=== PATIENT | male | born 1945 | race Caucasian/White ===

== ENCOUNTER 2023-08-26 09:40 | Outpatient (AMB) | payer MEDICARE, BC, SELFPAY ==
--- NOTE | 2023-08-26 10:02 | MHC.OFFWIV ---
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 thigh pain Intake Note: pt is here for c/o right thigh pain and cut on lip due to fall Patient Tobacco Use Status: Never used Tobacco Allergies iodine Allergy (Mild, Verified 08/26/23 10:07) Unknown Sulfa (Sulfonamide Antibiotics) Allergy (Mild, Verified 08/26/23 10:07) Hives Medication List - Last Reconciled 08/26/23 by Tabitha Mead NP allopurinol 200 mg PO DAILY esomeprazole magnesium 40 mg PO DAILY finasteride 5 mg PO DAILY hydrochlorothiazide 12.5 mg PO DAILY ipratropium bromide intranasal lisinopril 40 mg PO DAILY nebivolol 10 mg PO DAILY simvastatin 20 mg PO BEDTIME tramadol 50 mg PO Q6H PRN Do you need a note to return to daycare/school/sports/work: No HPI HPI Comments History of Present Illness Details 77-year-old male [place] today [place]. He presents with multiple abrasions and a laceration in the buccal mucosa. He got his foot stuck between the golf cart and the curb and fell directly striking is lip on a rock. He also has abrasions on both forearms. Denies any pain around his orbit, teeth or head. Denies loss of consciousness. PFSH Social History Patient Tobacco Use Status: Never used Tobacco Review of Systems Const All systems reviewed & are unremarkable except as noted in HPI and below Eyes Reports no additional complaints ENT Reports no additional complaints Skin/Breast Reports bleeding lesions and Reports wounds (Multiple abrasions bilateral forearms and buccal mucosa) Neuro Reports no additional complaints Physical Exam Vital Signs: Last Vital Signs Temp 97.9 F 08/26/23 10:07 Pulse 83 08/26/23 10:07 BP 118/70 08/26/23 10:07 Pulse Ox 98 08/26/23 10:07 BMI result Body Mass Index 25.2 Const General: healthy appearing HEENT Head: Yes normocephalic and Yes abrasion Ears: hearing grossly normal bilaterally and external ears normal General nose exam: Normal external nose present, Normal septum present and No nasal discharge present Face and sinus: Yes abrasion Mouth: lip abnormal (Swelling and mild abrasion) and Abnormal oral and palatal mucosa present (Small superficial laceration anterior) Teeth and gingiva: dentition normal Extrem Right upper extremity: elbow/forearm (Abrasions present full range of motion) Details: normal ROM and abrasion Left upper extremity: full ROM and elbow/forearm Details: abnormal to inspection, normal ROM and abrasion Right lower extremity: hip/thigh (Mild superficial abrasion in the right) Details: abrasion Left lower extremity: knee (Mild abrasion superior to the patella) Details: abrasion Assessment & Plan Assessment & Plan (1) Abrasion, multiple sites: Code(s): T07.XXXA - Unspecified multiple injuries, initial encounter Plan: The abrasions were cleansed and covered. Steri-Strips applied to 2 abrasions on the left hand. The patient will follow up with his PCP and may be referred to the wound clinic for the abrasion on his left forearm. Plan See plan Coding Level of Care Code Est Pt Level 3 (28702) Diagnoses Abrasion, multiple sites T07.XXXA
[2023-08-26 10:07] VITALS: BP 118/70; PULSE 83; TEMP 36.6; O2SAT 98; BMI 25.2
== END 2023-08-26 11:05 | disposition home or self-care (01) ==
PROVIDERS: Visit Provider Physician Assistant Medical
DX: T07.XXXA Unspecified multiple injuries, initial encounter (principal)
CPT/HCPCS: 99213

== ENCOUNTER 2025-02-11 13:04 | Outpatient (AMB) | payer MEDICARE, BC, SELFPAY ==
--- OUTSIDE RECORDS SUMMARY | 2024-10-29 04:00 | XMS_ITS ---
Author Organization [facility] Address [address] [place] [address] Care Team Providers Care Radial Router Operator Name Role Phone Mariam JACKSON, Heriberto Primary Care Provider Un available Nitin Varghese Unavailable [phone] Encounters Encounter Location Date Provider Diagnosis [address] [address] 10/29/2024 Nitin Varghese Plan Of Treatment Next Appt Details Provider Name:Nitin Varghese , 04/05/2025 02:00:00 PM, [address] [place] [address], [phone], Progress Notes * Hang GOMEZ DOB: (79 yo M)Acc No.[id number]:10/29/2024 Progress Note Patient: Carolyn GUALLPA Hang Liz Provider: Cali Varghese DPM :1945 A ge:79 Y S ex:Male Date:10/29/2024 Address:[address], [place] Pcp:Heriberto Becerra MD Subjective: * Chief Complaints: * * Medical History: Objective: * Vitals: Assessment: Plan: * Treatment: * Images: * The named appointment provid er may or may not be the originator of this progress note, and it is not deemed complete until electronically signed by the appointment provider. Sign off status: Pending * Provider: Cali Varghese DPM Date: 0 10/29/2024 Generated for Sarah [place] on: 04/14/2024 06:40 PM EST
--- OUTSIDE RECORDS SUMMARY | 2024-12-17 07:45 | XMS_ITS ---
Author Organization [facility] Address [address] [place] [address] Care Team Providers Care Telesales Consultant Name Role Phone Mariam JACKSON, Heriberto Primary Care Provider Un available Nitin Varghese Unavailable [phone] REASON FOR VISIT Seen Sooner Encounters Encounter Location Date Provider Diagnosis [address] [address] 12/17/2024 Nitin Varghese Plan Of Treatment Next Appt Details Provider Name:Nitin Varghese , 04/05/2025 02:00:00 PM, [address] [place] [address], [phone], Progress Notes * Hang GOMEZ DOB: (79 yo M)Acc No.[id number]:12/17/2024 Progress Note Patient: Carolyn GUALLPA Hang Liz Provider: Cali Varghese DPM :1945 A ge:79 Y S ex:Male Date:12/17/2024 Address:[address], [place] Pcp:Heriberto Becerra MD Subjective: * Chief Complaints: * 1 . Seen Sooner. * Medical History: Objective: * Vitals: Assessment: Plan: * Treatment: * Images: * The named appointment provid er may or may not be the originator of this progress note, and it is not deemed complete until electronically signed by the appointment provider. Sign off status: Pending * Provider: Cali Varghese DPM Date: 1 Generated for Sarah [place] on: 04/14/2024 06:40 PM EST
[2025-02-11 13:05] VITALS: BP 110/72; PULSE 91; TEMP 36.8; O2SAT 99; BMI 26.8
--- NOTE | 2025-02-11 13:05 | MHC.OFFWIV ---
Intake Vital Signs 02/11/25 13:05 Height 5 ft 11 in Weight 192 lb BMI 26.8 BP 110/72 Blood Pressure Location Lt brachial Position Sitting Pulse 91 Pulse Source Pulse Oximeter Temp 98.3 F Temp Source Oral Pulse Oximetry (%) 99 Oxygen Delivery Method Room Air Intake Visit Reasons: EP Possible UTI Intake Note: pt presents with cloudy urine, urine frequency, discomfort with voiding. Cystoscopy done 01/07- UTI treated cephalexin x7 days, fell 2 days later with increased pain for 2 weeks- s/s reported have been worsening over this period of time. Patient Tobacco Use Status: Never used Tobacco Allergies iodine Allergy (Mild, Verified 02/11/25 13:16) Unknown Sulfa (Sulfonamide Antibiotics) Allergy (Mild, Verified 02/11/25 13:16) Hives Do you need a note to return to daycare/school/sports/work: No HPI HPI Comments History of Present Illness Details History - The patient is a 79 year old male presenting with recurrent urinary tract infection symptoms. - He reports having a cystoscopy on January 07, and a couple of days later, he developed a urinary tract infection with associated fever and chills. - He was treated with Keflex for a week, and his symptoms initially improved. - Two days post-treatment, he fell and sustained an arm fracture, which delayed his surgery for two weeks. - During this period, his UTI symptoms returned. - Following his arm surgery, where he received antibiotics, his urinary symptoms once again seemed to improve. - Currently, his symptoms have recurred, characterized by cloudy urine, mild dysuria, and increased urinary frequency, which is worse than his baseline secondary to an enlarged prostate. - He denies any fever, low back pain, or gross hematuria. - The patient takes omeprazole daily. [facility] Social History Patient Tobacco Use Status: Never used Tobacco Review of Systems Narrative Review of Systems - Constitutional: Denies fever and chills. - Genitourinary: Reports cloudy urine, mild dysuria, and increased urinary frequency. Denies gross hematuria. - Musculoskeletal: Denies low back pain. All systems reviewed and are unremarkable except as noted in HPI Physical Exam Exam Exam: Physical Exam General: Cooperative, healthy appearing, comfortable, no acute distress and well developed Orientation: Patient oriented x3 Limitations: No limitations Head: Normal to inspection Ears: Hearing grossly normal bilaterally Face and sinus: Normal facial exam Neck: Normal visual inspection and Yes full ROM Respiratory: Normal respiratory effort and able to speak in complete sentences. Skin: No rashes or lesions noted Neuro: Patient oriented x3, gait normal Extremities: right arm in sling and cast. Vital Signs: Last Vital Signs Temp 98.3 F 02/11/25 13:05 Pulse 91 02/11/25 13:05 BP 110/72 02/11/25 13:05 Pulse Ox 99 02/11/25 13:05 Oxygen Delivery Method Room Air 02/11/25 13:05 BMI result Body Mass Index 26.8 Results AMB Urinalysis, Automated UA Leukoctes 125 Ale/uL Last Edit by Delfina Salter CMA on 02/11/25 13:27 2+ Delfina Salter 02/11/25 13:27 UA Nitrite Negative Last Edit by Delfina Salter CMA on 02/11/25 13:27 UA Urobilinogen 0.2 mg/dL Last Edit by Delfina Salter CMA on 02/11/25 13:27 UA Protein 100 mg/dL Last Edit by Delfina Salter CMA on 02/11/25 13:27 2+ Delfina Salter 02/11/25 13:27 UA pH 6.0 Last Edit by Delfina Salter CMA on 02/11/25 13:27 UA Blood 10 Jonas/uL Last Edit by Delfina Salter CMA on 02/11/25 13:27 UA Specific [place] 1.020 Last Edit by Delfina Salter CMA on 02/11/25 13:27 UA Ketone Negative Last Edit by Delfina Salter CMA on 02/11/25 13:27 UA Bilirubin 0 mg/dL Last Edit by Delfina Salter CMA on 02/11/25 13:27 UA Glucose 0 mg/dL Last Edit by Delfina Salter CMA on 02/11/25 13:27 cloudy urine Results Reviewed Results Reviewed: Laboratory Last Values Urine pH (Auto) 6.0 02/11/25 13: Specific [place] (Auto) 1.020 02/11/25 13:25 Urine Protein (Auto) 100 mg/dL H* 02/11/25 13:25 Glucose (UA)(Auto) 0 mg/dL 02/11/25 13:25 Urine Ketones (Auto) Negative 02/11/25 13:25 Urine Blood (Auto) 10 Jonas/uL H 02/11/25 13:25 Urine Nitrite (Auto) Negative 02/11/25 13:25 Urine Bilirubin (Auto) 0 mg/dL 02/11/25 13:25 Urine Urobilinogen (Auto) 0.2 mg/dL 02/11/25 13:25 Leukocyte Esterase (Auto) 125 Ale/uL H* 02/11/25 13:25 Assessment & Plan Assessment & Plan (1) UTI (urinary tract infection): Code(s): N39.0 - Urinary tract infection, site not specified Qualifiers: Urinary tract infection type: acute cystitis Hematuria presence: with hematuria Qualified Code(s): N30.01 - Acute cystitis with hematuria Plan: Plan - A urine culture will be sent to confirm the diagnosis and guide antibiotic therapy. - Cefuroxime will be prescribed, to be taken every 12 hours for 7 days, for the treatment of his urinary tract infection. - The patient was advised that omeprazole can reduce the absorption of cefuroxime and was counseled to try skipping it and using Tums as needed during the antibiotic course. - The patient is advised to follow up with his primary care provider after completing the antibiotic course to ensure the hematuria and proteinuria have resolved. Patient was informed and verbally consented to the use of an ambient scribe for clinic note documentation during this visit. Orders: Orders AMB Urinalysis Automated Today Z13.9 - Encounter for screening, unspecified Medications: New cefuroxime axetil 500 mg PO Q12H 14 tabs 0RF Coding Level of Care Code New Pt Level 3 (29725) Diagnoses Acute cystitis with hematuria N30.01 Urinary tract infection type: acute cystitis Hematuria presence: with hematuria
--- OUTSIDE RECORDS SUMMARY | 2025-02-11 18:40 | XMS_ITS | Encounter Summary ---
Author Organization [facility] [place] [address] Care Team Providers Care Gore Stitcher Name Role Phone Heriberto Becerra MD Primary Care Provider [phone] Encounter Details Date Type Department Care Team (Late st Contact Info) Description 12/31/2024 Lab Requisition [facility] - Main Lab [address] [facility] [place] [address] Paul Shahid MD [address] [facility] [address] [place] [address] Gross hematuria Social History Tobacco Use Types Packs/Day Years Used Date Smoking Tobacco: Never Smokeless Tobacco: Never Alcohol Use Standard Drinks/Week Comments Yes 0 (1 standard drink = 0.6 oz pur e alcohol) Interpersonal Safety Answer Date Record ed Physical Abuse Unrecognized value 06/28/2024 Verbal Abuse Unrecognized value 06/28/2024 Sex and Gender Information Value Date Recorded Sex Assigned at Male 05/04/2024 6:53 PM EST Legal Sex Male 5:22 PM EST Gender Identity Male 05/04/2024 6:53 PM EST Sexual Orientation Straight 05/04/2024 6: 53 PM EST documented as of this encounter Plan of Treatment Upcoming Encounters Date Type Department Care Team (Late st Contact Info) Description 03/01/2025 3:10 PM EST Office Visit Gastroenterology - [address] [place] [address] Jorge Luis Ojeda MD [address] [address] documented as of this encounter Procedures Procedure Name Priority Date/Time Associated Diagnosis Comments NON-GYNECOLOGIC CYTOLOGY Routine 12/17/2024 12:00 AM EDT Gross hematuria documented in this encounter Results * Non-gynecologic cytology (12/17/2024 12:00 AM EDT) Final Diagnosis Urine, Voided, [id number]: Negative for high grade urothelial carcinoma. 01/05/2025 4:35 PM [facility] at 1635 EST Specimen A Adequacy Satisfactory for evaluation 01/05/2025 4:35 PM [facility] Clinical Information Gross hematuria R31.0 Urine Cytology/reflex FISH 01/05/2025 4:35 PM [facility] Gross Description A. Urine, Voided, [id number]: Received one ThinPrep slide for cytology 01/05/2025 4:35 PM [facility] Disclaimer Unless otherwise specified, all tissue is 10% NB formalin fixed and paraffin embedded. Technical pathology services provided by [facility] at [address] [place] [address] [address], [place] [address] (CLIA #[id number]/Caden Pedraza MD, Real Estate Assessor) 01/05/2025 4:35 PM [facility] Urine Urine specimen from urethra / Unknown 12/17/2024 12/31/2024 2:05 PM EDT us Paul Shahid MD LAB CYTOLOGY ORDERABLES Final R esult [facility] [address] [place] [address], [place] [phone] documented in this encounter Visit Diagnoses Diagnosis Gross hematuria documented in this encounter Care Teams Gore Stitcher Relationship Specialty Start Date End Date Heriberto Becerra MD [address] [place] [phone] PCP - General 04/10/22 documented as of this encounter
--- OUTSIDE RECORDS SUMMARY | 2025-02-11 18:40 | XMS_ITS | Patient Health Record ---
Author Organization [facility] Gary Alexandra Address [address] [facility] [place] [address] Care Team Providers Care Rv Servicer Name Role Phone Mariam JACKSON, [facility] Primary Care Provider Un available Nitin Varghese Unavailable [phone] Allergies Allergen (clinical drug ingredient) Drug/Non Drug Allergy documented on EMR Reaction Allergy Type Onset Date Status sulfamethoxazole / trimethoprim Bactrim Hives Drug Allergy Active Iodine Dry heaves Drug Allergy Active Reason For Referral No Information Medications Medication SIG (Take, Route, Frequency, Duration) Notes Start Date End Date Status Vitamin B12 1000 MCG 1 tablet Orally Onc e a day Active traMADol HCl 50 MG 1 tablet as needed Orally 3 times a day PRN Active Finasteride 5 MG 1 tablet Orally Once a day Not-Taking Vitamin D-400 400 UNIT 2 tablets Orally Once a day Active Simvastatin 20 MG 1 tablet in the evening Orally Once a day Active Nebivolol HCl 10 MG 1 tablet Orally Once a day Active Lisinopril 20 MG 1 tablet Orally Once a day Active Allopurinol 100 MG 1 tablet Orally twice a day Active Metoprolol Succinate ER 100 MG 1 tablet Orally Once a day Not-Taking Atrovent Active amLODIPine Besylate 5 MG 1 tablet Orally Once a day Not-Taking hydroCHLOROthiazide 12.5 MG 1 tablet in the morning Orally Once a day Active Esomeprazole Sodium 40 MG Intravenous Active Aspirin 81 MG 1 tablet Orally Once a day Not-Taking Immunizations Vaccine Route Administration Date Status Comme nts Influenza Unknown 12/01/2021 Administered COVID-19 Moderna Vaccine Unknown 12/31/2020 Administered 1st 05/02/2020 2nd 05/30/2020 Social History Tobacco Use: Social History Observation Description Date Details (start date - stop date) Never Smoker NA - NA Tobacco use other than smoking: Question Answer Notes Are you an other tobacco user? No Tobacco Control (Standard) Question Answer Notes Tobacco use: Nonsmoker Additional Findings: Tobacco non-user Current no nsmoker AUDIT-C (Standard) Question Answer Notes Did you have a drink containing alcohol in the p ast year? No Points 0 Interpretation Negative Problems Problem Type SNOMED Code ICD Code Onset Dates Problem Status W/U Status Risk Notes Problem Tinea unguium (207811251) Tinea unguium (B35.1) Active confirmed Problem Plantar wart (14591576) Plantar wart (B07.0) Active confirmed Vital Signs Blood pressure diastolic 70 mm Hg 12/03/2024 Height 6ft in 12/03/2024 Blood pressure systolic 120 mm Hg 12/03/2024 Weight 190 lbs 12/03/2024 BMI 25.77 kg/m2 12/03/2024 Procedures Procedure Date Ordered Date Performed Result Body Sit e 72300-JJMWVDR NAIL, 6 OR MORE 04/20/2024 N/A 57521-Xivq Destruction, 1-14 04/20/2024 N/A 07341-EHKSSHC NAIL, 6 OR MORE 07/23/2024 N/A 94393-Cimw Destruction, 1-14 07/23/2024 N/A 54273-BZSNJRB NAIL, 6 OR MORE 12/03/2024 N/A 81844-Ffuk Destruction, 1-14 12/03/2024 N/A Encounters Encounter Location Date Provider Diagnosis [facility] [address] [address] 04/20/2024 Nitin Halima Tinea unguium B35.1 ; Pain in right toe(s) M79.674 ; Pain in left toe(s) M79.675 ; Plantar wart B07.0 ; Pain in left foot M79.672 and Pain in right foot M79.671 [facility] [address] [address] 07/23/2024 Nitin Halima Tinea unguium B35.1 ; Pain in right toe(s) M79.674 ; Pain in left toe(s) M79.675 ; Plantar wart B07.0 ; Pain in left foot M79.672 and Pain in right foot M79.[facility] [address] 12/03/2024 Nitin Varghese Tinea unguium B35.1 ; Pain in right toe(s) M79.674 ; Pain in left toe(s) M79.675 ; Plantar wart B07.0 and Pain in left foot M79.[address] [address] 09/21/2024 [facility] [address] [address] 12/03/2024 Nitin Varghese Assessments Encounter Date Diagnosis (ICD Code) Assessment Notes Treatment Notes Treatment Clinical Notes Section Notes 04/20/2024 Tinea unguium (ICD-10 - B35.1) 04/20/2024 Pain in right toe(s) (ICD-10 - M79.674) 07/23/2024 Tinea unguium (ICD-10 - B35.1) 07/23/2024 Pain in right toe(s) (ICD-10 - M79.674) 12/03/2024 Tinea unguium (ICD-10 - B35.1) 12/03/2024 Pain in right toe(s) (ICD-10 - M79.674) 12/03/2024 Pain in left toe(s) (ICD-10 - M79.675) 07/23/2024 Pain in left toe(s) (ICD-10 - M79.675) 04/20/2024 Pain in left toe(s) (ICD-10 - M79.675) 04/20/2024 Plantar wart (ICD-10 - B07.0) 07/23/2024 Plantar wart (ICD-10 - B07.0) 12/03/2024 Plantar wart (ICD-10 - B07.0) 12/03/2024 Pain in left foot (ICD-10 - M79.672) 07/23/2024 Pain in left foot (ICD-10 - M79.672) 04/20/2024 Pain in left foot (ICD-10 - M79.672) 07/23/2024 Pain in right foot (ICD-10 - M79.671) 04/20/2024 Pain in right foot (ICD-10 - M79.671) Plan Of Treatment Pending Test Test Name Order Date X ray : Foot, left 3V 05/21/2022 48300-YMFWRVW NAIL, 6 OR MORE 06/28/2022 28284-HVUYHHA NAIL, 6 OR MORE 04/02/2022 48891-WYSCAOD NAIL, 6 OR MORE 09/27/2022 95432-YBOGPNK NAIL, 6 OR MORE 01/07/2023 58946-FRKZMSL NAIL, 6 OR MORE 04/08/2023 96969-BRYYMTZ NAIL, 6 OR MORE 07/11/2023 63286-MAQEDLV NAIL, 6 OR MORE 10/17/2023 09903-ATYJKYO NAIL, 6 OR MORE 01/20/2024 49302-DEFYILR NAIL, 6 OR MORE 04/20/2024 08058-PDSEHCC NAIL, 6 OR MORE 07/23/2024 54539-CWTEGZQ NAIL, 6 OR MORE 12/03/2024 70343-XSQARCP NAIL, 6 OR MORE 07/15/2017 86296-IWFGOHG NAIL, 6 OR MORE 10/10/2017 76062-CYBYFCP NAIL, 6 OR MORE 01/27/2018 87313-BVEFYHU NAIL, 6 OR MORE 04/28/2018 24899-DVCNDTH NAIL, 6 OR MORE 08/31/2018 39689-VBAKLHT NAIL, 6 OR MORE 12/01/2018 01991-MKBAQGD NAIL, 6 OR MORE 04/06/2019 72704-HDPAJSY NAIL, 6 OR MORE 09/17/2019 48504-GTILPSL NAIL, 6 OR MORE 01/21/2020 33546-RPTLDYO NAIL, 6 OR MORE 04/21/2020 79530-SLCQJCR NAIL, 6 OR MORE 07/21/2020 87461-XSSAUPM NAIL, 6 OR MORE 10/20/2020 61134-GUYPYOM NAIL, 6 OR MORE 01/19/2021 57055-BMZCEDF NAIL, 6 OR MORE 06/05/2021 21232-BCNFJFC NAIL, 6 OR MORE 09/04/2021 76236-YIRJPRY NAIL, 6 OR MORE 12/18/2021 63739-Rmwq Destruction, 03-1612/18/2021 45039-Ieon Destruction, 03-1609/04/2021 20228-Pdub Destruction, 03-1606/05/2021 12722-Htem Destruction, 03-1610/20/2020 34086-Wjgi Destruction, 03-1607/21/2020 49630-Lyng Destruction, 03-1604/21/2020 94046-Eulv Destruction, 03-1601/21/2020 88080-Lolu Destruction, 03-1609/17/2019 18356-Ssck Destruction, 03-1607/15/2017 19856-Helv Destruction, 03-1604/06/2019 11036-Wcmr Destruction, 03-1612/01/2018 37017-Xtby Destruction, 03-1608/31/2018 54899-Keig Destruction, 03-1604/28/2018 01125-Onfk Destruction, 03-1601/27/2018 15269-Oscr Destruction, 03-1610/10/2017 56985-Kube Destruction, 03-1612/03/2024 10257-Zgys Destruction, 03-1601/19/2021 41576-Glal Destruction, 03-1607/23/2024 89227-Tkpf Destruction, 03-1604/20/2024 23501-Imyc Destruction, 03-1601/20/2024 50556-Olvr Destruction, 03-1610/17/2023 79519-Emeo Destruction, 03-1607/11/2023 11245-Oqry Destruction, 03-1604/08/2023 29865-Hcmp Destruction, 03-1601/07/2023 94889-Pxcw Destruction, 03-1609/27/2022 83118-Qlhk Destruction, 03-1604/02/2022 79090-Jeqi Destruction, 03-1606/28/2022 45514-Judqwtpd Plate 04/02/2022 48924-Yzpujtuc Plate 09/27/2022 01073-Jxsttppc Plate 01/07/2023 46143-Ekadtjrd Plate 04/06/2019 68798-Tknkpcgn Plate 01/21/2020 57110-Oqmnttia Plate 10/20/2020 02945-Rnlioohw Plate 01/19/2021 28198-Lbqpmevf Plate 12/18/2021 Next Appt Details Provider Name:Nitin Varghese , 04/05/2025 02:00:00 PM, [address] [facility], [place], [address], Insurance Providers Payer Name Payer Address Payer Phone Subscriber Number Group Number Insured Name Patient Relationship to Insured Coverage Start Date Coverage End Date Medicare National [employer] [address] [place] [address] [id number] Hang Elias Self - patient is the insured [facility] [address] [place] [address] [id number] Hang Elias Self - patient is the insured Medical (General) History Medical History History ICD Code Arthritis Broken bones CAD (Cholesterol) Gout High blood pressure Rheumatic fever Stomach ulcer Measles Mumps Chicken pox Surgical History Surgery Date(Month/Year) [facility]- thyroglosial cyst taken out of neck 03/26/19 Right Shoulder replacement 10/21/2024 Hospitalization History Reason Date(Month/Year) urgent care left foot pain x rays done plantar fasciitis ? unkown cause 05/2022
--- OUTSIDE RECORDS SUMMARY | 2025-02-11 18:41 | XMS_ITS ---
[facility] Care Team Organization Name Specialty Phone Email Start Date End [facility] AGUSTIN GONZALEZ Primary Care 01/08/2022 024
--- OUTSIDE RECORDS SUMMARY | 2025-02-11 18:41 | XMS_ITS | Clinical Summary ---
Author Organization [facility] [address] [facility] Address [address] [place] [address] Phone Care Team Providers Care Oracle Developer Name Role Phone Heriberto Becerra MD Primary Care Provider [phone] Allergies Active Allergy Reactions Criticality Noted Date Comments Iodine Nausea And Vomiting 11/28/2005 Other Reaction(s): Hives/Urticaria Nsaids (Non-Steroidal Anti-Inflammatory Drug) 10/15/2017 Other Reaction(s): OTHER Acute kidney Injury/ CKD Sulfa (Sulfonamide Antibiotics) 11/28/2005 Other Reaction(s): Hives/Urticaria, Rash/Dermatitis Medications lisinopril (PRINIVIL,ZEST RIL) 40 mg tablet Take 1 tablet (40 mg total) by mouth. 1 Active nebivoloL (BYSTOLIC) 10 mg tablet Take 1 tablet (10 mg total) by mouth 1 (one) time each day. Active traMADoL (ULTRAM) 50 mg tablet Take 1 tablet (50 mg total) by mouth every 6 (six) hours if needed. for moderate pain Max Daily Amount: 200 mg Active hydroCHLOROthi azide 12.5 mg tablet Take 1 tablet (12.5 mg total) by mouth 1 (one) time each day. Active cyanocobalamin (Vitamin B-12) 1,000 mcg tablet Take 1 tablet (1,000 mcg total) by mouth. 3 Active allopurinoL (ZYLOPRIM) 100 mg tablet Take 2 tablets (200 mg total) by mouth 1 (one) time each day. Active esomeprazole (NexIUM) [address] capsuleIndicat ions:GERD (gastroesophag eal reflux disease) TAKE 1 CAPSULE DAILY *CAMBER* 90 capsule 1 5 Active esomeprazole (NexIUM) [address] capsuleIndicat ions:GERD (gastroesophag eal reflux disease) TAKE 1 CAPSULE DAILY *CAMBER* 90 capsule 1 5 025 Discontinued Encounters Date Type Department Care Team Description 12/31/2024 Lab Requisition [facility] - Main Lab [address] [facility] [place] [address] Paul Shahid MD Gross hematuria from Last 3 Months Surgical History Surgery Date Site/Laterality Comments UPPER GASTROINTESTINAL ENDOSCOPY 2016 PROCEDURE: MS UPPER GI ENDOSCOPY PERFORMED COLONOSCOPY 03/03/2002 PROCEDURE: HISTORICAL COLONOSCOPY; COMMENT: Dr. 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 Gout 01/12/2006 DX:Gout Erectile dysfunction 01/12/2006 DX:Erectile dysfunction DANNIE (obstructive sleep apnea) 10/15/2017 DX :DANNIE (obstructive sleep apnea); COMMENT: CPAP Rheumatic fever 11/28/2005 DX:Rheumatic fev er; COMMENT: 1967, [place] GERD (gastroesophageal reflux disease) 10/15/2017 DX:GERD (gastroesophageal reflux disease) Tinnitus, bilateral 10/15/2017 DX:Tinnitus, bilateral; COMMENT: Chronic -past several years Elevated PSA 10/15/2017 DX:Elevated PSA; COMMENT: 08/2016 PSA 6.4, 2010 Needle biopy prostate- Negative Osteoarthritis 10/15/2017 DX:Osteoarthriti s; COMMENT: Spine, Right foot Family History Medical History Relation Name Comments Other: AVR Father Melanoma Prostate cancer Father's side Uncle Kidney cancer Mother @ 69 Breast cancer Sister Relation Name Status Comments Father Alive Father's side Mother renal cell canc er Sister Alive Social History Tobacco Use Types Packs/Day Years [...] Orientation Straight 05/04/2024 6: 53 PM EST Last Filed Vital Signs Vital Sign Reading Time Taken Comments Blood Pressure 104/67 06/28/2024 11:19 AM EDT Pulse 62 06/28/2024 11:19 AM EDT Temperature 36.4 C (97.5 F) 06/28/2024 10:59 AM EDT Respiratory Rate 20 06/28/2024 11:19 AM EDT Oxygen Saturation 99% 06/28/2024 11:19 AM EDT Inhaled Oxygen Concentration - - Weight 83 kg (183 lb) 06/28/2024 9:50 AM EDT Height 182.9 cm (6') 06/28/2024 9:50 AM EDT Body Mass Index 24.82 06/28/2024 9:50 AM EDT Plan of Treatment Upcoming Encounters Date Type Department Care Team (Late st Contact Info) Description 03/01/2025 3:10 PM EST Office Visit Gastroenterology - [address] [place] [id number] Jorge Luis Ojeda MD [address] [place] [address] Health Maintenance Due Date Last Done Comments Cholesterol Screening (Lipid Panel) 02/02/2022 Colorectal Cancer Screening: Stool Based Tests (FOBT/FIT) 02/02/2022 Hepatitis C Screening 02/02/2022 Medicare Annual Wellness Visit 02/02/2022 Social Influencers of Health Screening 02/02/2022 Hypertension/CHF/CAD Annual BMP Blood Test 02/10/2022 Depression Screening 03/03/2024 COVID-19 Vaccine ( season) 2024 06/21/2024, 12/08/2023, 12/06/2022, Additional history exists Influenza Vaccine (#1) 2024 , 12/06/2022, 12/10/2021, Additional history exists Falls Risk Assessment 06/28/2025 06/28/2024 DTaP,Tdap,and Td Vaccines (3 - Td or Tdap) 04/17/2031 04/17/2021, 03/07/2006 Zoster Vaccines Completed 03/20/2020, 11/2019, 01/09/2020, Additional history exists Pneumococcal Vaccine: 50+ Years Completed 05/02/2022, 07/01/2013, 09/02/2012, Additional history exists RSV Immunization Adult Patients Completed 12/26/2022 Colorectal Cancer Screening: Colonoscopy Discontinued 06/30/2024, 06/28/2024 HIB Vaccines Aged Out No longer eligi ble based on patient's age to complete this topic HPV Vaccines Aged Out No longer eligi ble based on patient's age to complete this topic Hepatitis A Vaccines Aged Out No long er eligible based on patient's age to complete this topic Hepatitis B Vaccines Aged Out No long er eligible based on patient's age to complete this topic IPV Vaccines Aged Out No longer eligi ble based on patient's age to complete this topic MMR Vaccines Aged Out No longer eligi ble based on patient's age to complete this topic Meningococcal ACWY Vaccine Aged Out N o longer eligible based on patient's age to complete this topic Meningococcal B Vaccine Aged Out No l onger eligible based on patient's age to complete this topic RSV Immunization Patients Under 20 months Aged Out No longer eligible based on patient's age to complete this topic Varicella Vaccines Aged Out No longer eligible based on patient's age to complete this topic Procedures Procedure Name Priority Date/Time Associated Diagnosis Comments NON-GYNECOLOGIC CYTOLOGY Routine 12/17/2024 12:00 AM EDT Gross hematuria COLONOSCOPY Routine 06/30/2024 3:27 PM EDT from Last 3 Months or Most Recently Relevant to Health Maintenance Results * Non-gynecologic cytology (12/17/2024 12:00 AM EDT) Final Diagnosis Urine, Voided, [id number]: Negative for high grade urothelial carcinoma. 01/05/2025 4:35 PM [facility] at 1635 EST Specimen A Adequacy Satisfactory for evaluation 01/05/2025 4:35 PM [facility] Clinical Information Gross hematuria R31.0 Urine Cytology/reflex FISH 01/05/2025 4:35 PM [facility] Gross Description A. Urine, Voided, [id number]: Received one ThinPrep slide for cytology 01/05/2025 4:35 PM [facility] Disclaimer Unless otherwise specified, all tissue is 10% NB formalin fixed and paraffin embedded. Technical pathology services provided by [facility] at [address], [place] [address] (CLIA #[id number]/Caden Pedraza MD, Field Advisor) 01/05/2025 4:35 PM [facility] Urine Urine specimen from urethra / Unknown 12/17/2024 12/31/2024 2:05 PM EDT Paul Shahid MD LAB CYTOLOGY ORDERABLES Final R esult [facility] [address] [place] [address], * COLONOSCOPY (06/30/2024 3:27 PM EDT) Anatomical Region Laterality Modality Endoscopy Historical Provider GI~PROCEDURE ORDERABLES F inal Result from Last 3 Months or Most Recently Relevant to Health Maintenance Insurance [facility] MEDICARE Care Teams Oracle Developer Relationship Specialty Start Date End Date Heriberto Becerra MD [address] [place] [phone] PCP - General 04/10/22
== END 2025-02-11 13:38 | disposition home or self-care (01) ==
PROVIDERS: Visit Provider Physician Assistant
DX: Z13.9 Encounter for screening, unspecified (principal); N30.01 Acute cystitis with hematuria

== ENCOUNTER → 2025-02-11 13:04 | Outpatient (BNVA) | payer MEDICARE, BC, SELFPAY | PROVIDERS: Visit Provider Physician Assistant | DX: N30.01 Acute cystitis with hematuria (principal) | CPT/HCPCS: 81003; 99202 ==